=== PATIENT | male | born 1975 | race Caucasian/White ===

== ENCOUNTER 2019-12-11 14:10 | Inpatient (IN) | payer MEDICAID, OTHER, SELFPAY ==
[~2019-12-11] VITALS: Ht 170.2 cm; Wt 84.8 kg
[2019-12-11 15:03] LABS: BASOPHILS % 0.1 % (0.0-2.0); HEMATOCRIT. 37.4 % (42.0-52.0); HEMOGLOBIN. 12.8 g/dL (14.0-18.0); LYMPHOCYTES % 13.9 % (20.0-50.0); MEAN CORPUSCULAR HEMOGLOBIN 29.9 pg (28.0-32.0); MEAN CORPUSCULAR VOLUME 87.4 fL (80.0-94.0); MONOCYTES % 8.6 % (2.0-8.0); NEUTROPHILS % 77.4 % (40.0-76.0); PLATELET 288 x1000/uL (130-400); RED BLOOD CELL COUNT 4.28 mill/uL (4.7-6.1); RED CELL DISTRIBUTION WIDTH 12.9 % (11.6-14.6)
[2019-12-11 15:12] LABS: CHLORIDE 93 mEq/L (98-107)
[2019-12-11 15:17] LABS: ETHANOL BLOOD < 10 mg/dL
[2019-12-11 15:19] LABS: BETA HYDROXYBUTYRATE 0.7 mMol/L (0.0-0.3)
[2019-12-11] MEDS ORDERED: AZITHROMYCIN 500 MG in DEXT 5% WATER 250 ML IV SCH (16:45)
[2019-12-11] MEDS ORDERED: PIPERACILLIN/TAZOBACTAM 3.375GM/50ML PREMIX IV ONE (16:45)
[2019-12-11] MEDS ORDERED: VANCOMYCIN 1 G PREMIX 200 ML IV SCH (16:45)
[2019-12-11] MEDS ORDERED: PIPERACILLIN/TAZ 3.375G PREMIX 50 ML IV NR (16:45)
[2019-12-11] MEDS ORDERED: IOHEXOL-350 100 ML BOTTLE ONE (17:08)
[2019-12-11] MEDS ORDERED: NITROGLYCERIN 0.4MG TABLET SL SL ONE (18:00)
[2019-12-11] MEDS ORDERED: FUROSEMIDE 40MG/4ML VIAL IVP ONE (18:00)
[2019-12-11] MEDS ORDERED: MORPHINE SULFATE 4 MG/ML CPJ (NOT FOR IM USE) IV ONE (18:00)
[2019-12-11 21:01] LABS: CLARITY URINE CLEAR (CLEAR); COLOR URINE YELLOW (YELLOW); KETONES URINE NEGATIVE (NEGATIVE); LEUKOCYTE ESTERASE URINE NEGATIVE (NEGATIVE); NITRITE URINE NEGATIVE (NEGATIVE); OCCULT BLOOD URINE TRACE (NEGATIVE); PH URINE 5.5 (4.5-8.0); PROTEIN URINE 2+ (NEGATIVE); SPECIFIC GRAVITY URINE 1.015 (1.005-1.030); UROBILINOGEN URINE 0.2 E.U./dL (0.2-1.0)
[2019-12-11 21:18] LABS: *AMPHETAMINES SCREEN URINE NEGATIVE (NEGATIVE)
[2019-12-11 21:19] LABS: *BENZODIAZEPINES SCREEN URINE NEGATIVE (NEGATIVE); *COCAINE SCREEN URINE NEGATIVE (NEGATIVE); CANNABINOID URINE SCREEN NEGATIVE (NEGATIVE); METHADONE URINE SCREEN NEGATIVE (NEGATIVE); OPIATES URINE SCREEN PRESUMTIVE POSITIVE (NEGATIVE); PHENCYCLIDINE URINE SCREEN NEGATIVE (NEGATIVE)
[2019-12-11 21:20] LABS: *BARBITURATES SCREEN URINE NEGATIVE (NEGATIVE)
[2019-12-11] MEDS ORDERED: ENOXAPARIN 40MG/0.4ML SYR SUBCUT SCH (23:30)
[2019-12-11] MEDS ORDERED: CLONIDINE 0.1MG TABLET PO PRN (23:30)
[2019-12-11] MEDS ORDERED: CEFTRIAXONE 1 G PREMIX 50 ML IV SCH (23:30)
[2019-12-11] MEDS ORDERED: ONDANSETRON HCL 4MG/2ML INJ IV PRN (23:30)
[2019-12-11] MEDS ORDERED: MAGNESIUM/ALUMINUM HYDROXIDE/SIMETHICONE 30ML UDC PO PRN (23:30)
[2019-12-11] MEDS ORDERED: SODIUM CHLORIDE 0.9% 1,000 ML IV SCH (23:30)
[2019-12-11] MEDS ORDERED: HYDROCODONE/ACETAMINOPHEN 5/325MG TABLET PO PRN (23:30)
[2019-12-12] VITALS (37 sets, daily range): BP systolic 112–148; BP diastolic 65–100
[2019-12-12] MEDS: FUROSEMIDE 40MG/4ML VIAL IV SCH ×2 (00:54→08:33)
[2019-12-12] MEDS ORDERED: DEXTROSE 50% WATER 50ML SYRINGE IV PRN (01:15)
[2019-12-12] MEDS ORDERED: AMLO10TA80 PO (01:56)
[2019-12-12] MEDS ORDERED: GLIP10TA10 PO (01:56)
[2019-12-12] MEDS ORDERED: METO-539 PO (01:56)
[2019-12-12] MEDS ORDERED: PRAV20TA57 PO (01:56)
[2019-12-12] MEDS ORDERED: ATOR40TA70 PO (01:56)
[2019-12-12] MEDS ORDERED: METF-416 PO (01:56)
[2019-12-12 05:56] LABS: CHLORIDE 94 mEq/L (98-107)
[2019-12-12 06:16] LABS: BG BASE EXCESS 2.7 mmol/L (-2.0-2.0); BG CARBOXYHEMOGLOBIN 0.3 % (0.5-1.5); BG DEOXYHEMOGLOBIN 7.7 % (0.0-5.0); BG FRACTION INSPIRED OXYGEN 100; BG METHEMOGLOBIN 0.2 % (0.0-1.5); BG OXYGEN SATURATION 92.3 % (92.0-98.5); BG OXYHEMOGLOBIN 91.8 % (94.0-97.0); BG PCO2 35.7 mmHg (35.0-45.0); BG PO2 63.6 mmHg (75.0-100.0); BG SAMPLE SITE RIGHT BRACHIAL; BG TOTAL HEMOGLOBIN 13.2 g/dL (12.0-18.0); BG VENT MODE MASK - BIPAP
[2019-12-12] MEDS: BLOOD SUGAR DIAGNOSTIC STRIP TEST SCH ×4 (06:17→20:06)
[2019-12-12 06:18] LABS: BASOPHILS % 0.2 % (0.0-2.0); EOSINOPHILS % 0.1 % (0.0-5.0); HEMATOCRIT. 35.9 % (42.0-52.0); HEMOGLOBIN. 12.5 g/dL (14.0-18.0); LYMPHOCYTES % 16.6 % (20.0-50.0); MEAN CORPUSCULAR HEMOGLOBIN 30.3 pg (28.0-32.0); MEAN CORPUSCULAR VOLUME 86.8 fL (80.0-94.0); MEAN PLATELET VOLUME 9.3 fl (7.4-10.4); MONOCYTES % 7.7 % (2.0-8.0); NEUTROPHILS % 75.4 % (40.0-76.0); PLATELET 312 x1000/uL (130-400); RED BLOOD CELL COUNT 4.13 mill/uL (4.7-6.1); RED CELL DISTRIBUTION WIDTH 12.9 % (11.6-14.6)
[2019-12-12] MEDS: INSULIN LISPRO 100 UNITS/ML SUBCUT SCH ×4 (06:18→20:08)
[2019-12-12 06:28] LABS: LDL CHOLESTEROL 81 mg/dL (5-100)
[2019-12-12 06:29] LABS: CREATINE KINASE 97 IU/L (39-308)
[2019-12-12 06:30] LABS: HDL CHOLESTEROL 36 mg/dL (40-59)
[2019-12-12 06:35] LABS: CREATINE KINASE MB FRACTION < 1.0 ng/mL (0.5-3.6)
[2019-12-12] MEDS: IPRATROPIUM/ALBUTEROL 0.5-3(2.5)MG/3ML NEB NEB PRN ×3 (08:17→16:51)
[2019-12-12 08:35] LABS: BG BASE EXCESS 4.9 mmol/L (-2.0-2.0); BG CARBOXYHEMOGLOBIN 0.1 % (0.5-1.5); BG DEOXYHEMOGLOBIN 5.8 % (0.0-5.0); BG HCO3 ACT 29.1 mmol/L (22.0-26.0); BG METHEMOGLOBIN 0.1 % (0.0-1.5); BG OXYGEN SATURATION 94.2 % (92.0-98.5); BG PCO2 41.4 mmHg (35.0-45.0); BG PH 7.465 (7.350-7.450); BG PO2 70.3 mmHg (75.0-100.0); BG SAMPLE SITE RIGHT BRACHIAL; BG TOTAL HEMOGLOBIN 12.8 g/dL (12.0-18.0); BG VENT MODE MASK - BIPAP
[2019-12-12] MEDS: DEXAMETHASONE 4MG TABLET PO SCH (09:58)
[2019-12-12 11:22] LABS: SODIUM URINE RANDOM 86 mEq/L
[2019-12-12] MEDS ORDERED: AZITHROMYCIN 500 MG in DEXT 5% WATER 250 ML IV SCH (17:00)
[2019-12-12] MEDS: AZITHROMYCIN 500 MG in DEXT 5% WATER 250 ML IV SCH (17:27)
[2019-12-12 18:25] LABS: CREATINE KINASE 96 IU/L (39-308)
[2019-12-12 18:26] LABS: CREATINE KINASE MB FRACTION < 1.0 ng/mL (0.5-3.6)
[2019-12-12] MEDS: ENOXAPARIN 30MG/0.3ML SYR SUBCUT SCH (20:05)
[2019-12-12] MEDS: CEFTRIAXONE 1,000 MG in DEXTROSE 5% WATER 50 ML IV SCH (20:05)
[2019-12-12] MEDS: ACETAMINOPHEN 325MG TABLET PO PRN (20:08)
[2019-12-12] MEDS ORDERED: CEFTRIAXONE 1,000 MG in DEXTROSE 5% WATER 50 ML IV SCH (21:00)
[2019-12-12] MEDS: VANCOMYCIN 750 MG PREMIX 150 ML IV SCH (23:42)
[2019-12-13] VITALS (37 sets, daily range): BP systolic 80–164; BP diastolic 50–148
[2019-12-13] MEDS: BLOOD SUGAR DIAGNOSTIC STRIP TEST SCH ×4 (05:39→21:38)
[2019-12-13] MEDS: INSULIN LISPRO 100 UNITS/ML SUBCUT SCH ×4 (05:40→21:44)
[2019-12-13] MEDS: VANCOMYCIN 750 MG PREMIX 150 ML IV SCH ×2 (08:23→16:44)
[2019-12-13] MEDS: ATORVASTATIN CALCIUM 40MG TABLET PO SCH (09:24)
[2019-12-13] MEDS: DEXAMETHASONE 4MG TABLET PO SCH (09:24)
[2019-12-13] MEDS: AMLODIPINE 10MG TABLET PO SCH (09:25)
[2019-12-13] MEDS: GLIPIZIDE 10MG TABLET PO SCH (09:25)
[2019-12-13] MEDS: METOPROLOL TARTRATE 50MG TABLET PO SCH (09:26)
[2019-12-13] MEDS: ENOXAPARIN 30MG/0.3ML SYR SUBCUT SCH ×2 (09:27→21:38)
[2019-12-13 13:12] LABS: HEMATOCRIT. 37.7 % (42.0-52.0); HEMOGLOBIN. 12.9 g/dL (14.0-18.0); MEAN CORPUSCULAR HEMOGLOBIN 29.8 pg (28.0-32.0); MEAN CORPUSCULAR VOLUME 86.9 fL (80.0-94.0); PLATELET 409 x1000/uL (130-400); RED BLOOD CELL COUNT 4.34 mill/uL (4.7-6.1)
[2019-12-13 13:22] LABS: CHLORIDE 96 mEq/L (98-107)
[2019-12-13 13:27] LABS: PHOSPHORUS 3.3 mg/dL (2.5-4.9)
[2019-12-13 13:46] LABS: PLATELET ESTIMATE SLIGHTLY INCREASED
[2019-12-13] MEDS: AZITHROMYCIN 500 MG in DEXT 5% WATER 250 ML IV SCH (17:00)
[2019-12-13] MEDS ORDERED: REMDESIVIR 200 MG in SODIUM CHLORIDE 0.9% 250 ML IV NR (18:00)
[2019-12-13] MEDS: CEFTRIAXONE 1,000 MG in DEXTROSE 5% WATER 50 ML IV SCH (21:36)
[2019-12-14] VITALS (45 sets, daily range): BP systolic 101–152; BP diastolic 35–99
[2019-12-14] MEDS: VANCOMYCIN 750 MG PREMIX 150 ML IV SCH (00:02)
[2019-12-14 05:19] LABS: CHLORIDE 93 mEq/L (98-107)
[2019-12-14 05:24] LABS: TOTAL IRON BINDING CAPACITY 200 ug/dL (250-450)
[2019-12-14 05:28] LABS: VANCOMYCIN TROUGH 19.7 ug/mL (5.0-10.0)
[2019-12-14] MEDS: INSULIN LISPRO 100 UNITS/ML SUBCUT SCH ×4 (06:05→21:26)
[2019-12-14] MEDS: BLOOD SUGAR DIAGNOSTIC STRIP TEST SCH ×4 (06:06→21:30)
[2019-12-14 06:50] LABS: VITAMIN B12 SERUM > 2000.0 pg/mL (211-911)
[2019-12-14] MEDS: GLIPIZIDE 10MG TABLET PO SCH (08:58)
[2019-12-14] MEDS: DEXAMETHASONE 4MG TABLET PO SCH (08:58)
[2019-12-14] MEDS: ATORVASTATIN CALCIUM 40MG TABLET PO SCH (08:58)
[2019-12-14] MEDS: AMLODIPINE 10MG TABLET PO SCH (08:59)
[2019-12-14] MEDS: METOPROLOL TARTRATE 50MG TABLET PO SCH (08:59)
[2019-12-14] MEDS ORDERED: VANCOMYCIN 750 MG PREMIX 150 ML IV SCH (09:00)
[2019-12-14] MEDS: ENOXAPARIN 30MG/0.3ML SYR SUBCUT SCH ×2 (09:00→21:29)
[2019-12-14] MEDS: INSULIN GLARGINE UD 100 UNITS/ML SYR SUBCUT SCH ×2 (12:15→22:36)
[2019-12-14] MEDS: REMDESIVIR 100 MG in SODIUM CHLORIDE 0.9% 250 ML IV SCH (15:01)
[2019-12-14] MEDS: AZITHROMYCIN 500 MG in DEXT 5% WATER 250 ML IV SCH (16:33)
[2019-12-14] MEDS: CEFTRIAXONE 1,000 MG in DEXTROSE 5% WATER 50 ML IV SCH (21:17)
[2019-12-15] VITALS (44 sets, daily range): BP systolic 95–157; BP diastolic 33–91
[2019-12-15] MEDS: ALBUTEROL 6.7GM HFA INHALER ORI SCH ×6 (01:14→21:02)
[2019-12-15 05:02] LABS: HEMATOCRIT. 38.4 % (42.0-52.0); HEMOGLOBIN. 12.8 g/dL (14.0-18.0); MEAN CORPUSCULAR HEMOGLOBIN 29.2 pg (28.0-32.0); MEAN CORPUSCULAR VOLUME 87.3 fL (80.0-94.0); MEAN PLATELET VOLUME 8.7 fl (7.4-10.4); PLATELET 481 x1000/uL (130-400)
[2019-12-15 05:14] LABS: CHLORIDE 98 mEq/L (98-107)
[2019-12-15] MEDS: BLOOD SUGAR DIAGNOSTIC STRIP TEST SCH ×4 (05:41→21:25)
[2019-12-15] MEDS: INSULIN LISPRO 100 UNITS/ML SUBCUT SCH ×4 (05:45→21:25)
[2019-12-15 07:27] LABS: BG BASE EXCESS 2.9 mmol/L (-2.0-2.0); BG CARBOXYHEMOGLOBIN 0.3 % (0.5-1.5); BG DEOXYHEMOGLOBIN 5.8 % (0.0-5.0); BG METHEMOGLOBIN 0.1 % (0.0-1.5); BG OXYGEN SATURATION 94.2 % (92.0-98.5); BG OXYHEMOGLOBIN 93.8 % (94.0-97.0); BG PCO2 39.8 mmHg (35.0-45.0); BG PO2 70.9 mmHg (75.0-100.0); BG SAMPLE SITE RIGHT RADIAL; BG TOTAL HEMOGLOBIN 13.1 g/dL (12.0-18.0); BG VENT MODE MASK - BIPAP
[2019-12-15 08:57] LABS: PLATELET ESTIMATE INCREASED
[2019-12-15] MEDS: AMLODIPINE 10MG TABLET PO SCH (09:15)
[2019-12-15] MEDS: ATORVASTATIN CALCIUM 40MG TABLET PO SCH (09:15)
[2019-12-15] MEDS: DEXAMETHASONE 4MG TABLET PO SCH (09:15)
[2019-12-15] MEDS: GLIPIZIDE 10MG TABLET PO SCH (09:15)
[2019-12-15] MEDS: METOPROLOL TARTRATE 50MG TABLET PO SCH (09:16)
[2019-12-15] MEDS: ENOXAPARIN 30MG/0.3ML SYR SUBCUT SCH ×2 (09:19→21:23)
[2019-12-15] MEDS: INSULIN GLARGINE UD 100 UNITS/ML SYR SUBCUT SCH ×2 (09:23→21:24)
[2019-12-15] MEDS: REMDESIVIR 100 MG in SODIUM CHLORIDE 0.9% 250 ML IV SCH (16:27)
[2019-12-15] MEDS: AZITHROMYCIN 500 MG in DEXT 5% WATER 250 ML IV SCH (17:00)
[2019-12-15] MEDS: CEFTRIAXONE 1,000 MG in DEXTROSE 5% WATER 50 ML IV SCH (21:43)
[2019-12-16] VITALS (42 sets, daily range): BP systolic 110–147; BP diastolic 42–94
[2019-12-16] MEDS: ALBUTEROL 6.7GM HFA INHALER ORI SCH ×4 (01:55→20:57)
[2019-12-16 05:53] LABS: CHLORIDE 99 mEq/L (98-107)
[2019-12-16 05:55] LABS: HEMATOCRIT. 37.1 % (42.0-52.0); HEMOGLOBIN. 12.5 g/dL (14.0-18.0); MEAN CORPUSCULAR HEMOGLOBIN 29.3 pg (28.0-32.0); MEAN PLATELET VOLUME 8.7 fl (7.4-10.4); PLATELET 506 x1000/uL (130-400); RED BLOOD CELL COUNT 4.27 mill/uL (4.7-6.1); RED CELL DISTRIBUTION WIDTH 12.9 % (11.6-14.6)
[2019-12-16] MEDS: BLOOD SUGAR DIAGNOSTIC STRIP TEST SCH ×4 (06:14→21:20)
[2019-12-16] MEDS: INSULIN LISPRO 100 UNITS/ML SUBCUT SCH ×4 (06:14→21:22)
[2019-12-16] MEDS: AMLODIPINE 10MG TABLET PO SCH (08:32)
[2019-12-16] MEDS: ATORVASTATIN CALCIUM 40MG TABLET PO SCH (08:32)
[2019-12-16] MEDS: METOPROLOL TARTRATE 50MG TABLET PO SCH (08:33)
[2019-12-16] MEDS: DOCUSATE SODIUM 100MG CAPSULE PO PRN ×2 (08:33→21:50)
[2019-12-16] MEDS: DEXAMETHASONE 4MG TABLET PO SCH (08:33)
[2019-12-16] MEDS: GLIPIZIDE 10MG TABLET PO SCH (08:33)
[2019-12-16] MEDS: ENOXAPARIN 30MG/0.3ML SYR SUBCUT SCH ×2 (08:34→21:19)
[2019-12-16] MEDS ORDERED: GUAIFENESIN-DM 200MG-20MG/10ML UDC PO PRN (08:45)
[2019-12-16 08:53] LABS: PLATELET ESTIMATE INCREASED
[2019-12-16] MEDS ORDERED: DEXAMETHASONE 4MG TABLET PO SCH (09:00)
[2019-12-16] MEDS: INSULIN GLARGINE UD 100 UNITS/ML SYR SUBCUT SCH ×2 (10:34→21:20)
[2019-12-16] MEDS: REMDESIVIR 100 MG in SODIUM CHLORIDE 0.9% 250 ML IV SCH (16:46)
[2019-12-16] MEDS: AZITHROMYCIN 500 MG in DEXT 5% WATER 250 ML IV SCH (16:59)
[2019-12-16] MEDS: CEFTRIAXONE 1,000 MG in DEXTROSE 5% WATER 50 ML IV SCH (21:18)
[2019-12-17] VITALS (45 sets, daily range): BP systolic 117–152; BP diastolic 55–93
[2019-12-17] MEDS: ACETAMINOPHEN 325MG TABLET PO PRN (00:17)
[2019-12-17] MEDS: ALBUTEROL 6.7GM HFA INHALER ORI SCH ×3 (01:25→16:08)
[2019-12-17] MEDS: BLOOD SUGAR DIAGNOSTIC STRIP TEST SCH ×4 (06:16→21:00)
[2019-12-17] MEDS: INSULIN LISPRO 100 UNITS/ML SUBCUT SCH ×4 (06:18→23:03)
[2019-12-17] MEDS: GLIPIZIDE 10MG TABLET PO SCH (08:16)
[2019-12-17] MEDS: ATORVASTATIN CALCIUM 40MG TABLET PO SCH (08:17)
[2019-12-17] MEDS: ENOXAPARIN 30MG/0.3ML SYR SUBCUT SCH ×2 (08:17→21:37)
[2019-12-17] MEDS: AMLODIPINE 10MG TABLET PO SCH (08:17)
[2019-12-17] MEDS: DEXAMETHASONE 4MG TABLET PO SCH (08:17)
[2019-12-17] MEDS: METOPROLOL TARTRATE 50MG TABLET PO SCH (08:17)
[2019-12-17 10:21] LABS: CHLORIDE 100 mEq/L (98-107)
[2019-12-17 10:27] LABS: PHOSPHORUS 2.7 mg/dL (2.5-4.9)
[2019-12-17] MEDS: INSULIN GLARGINE UD 100 UNITS/ML SYR SUBCUT SCH ×2 (10:29→21:38)
[2019-12-17] MEDS ORDERED: LACTULOSE 20G/30ML UDC PO NR (11:30)
[2019-12-17] MEDS: REMDESIVIR 100 MG in SODIUM CHLORIDE 0.9% 250 ML IV SCH (16:56)
[2019-12-18] VITALS (34 sets, daily range): BP systolic 115–154; BP diastolic 28–97
[2019-12-18] MEDS: ALBUTEROL 6.7GM HFA INHALER ORI SCH ×3 (01:54→16:50)
[2019-12-18 05:42] LABS: CHLORIDE 102 mEq/L (98-107)
[2019-12-18 05:45] LABS: HEMATOCRIT. 38.3 % (42.0-52.0); HEMOGLOBIN. 12.9 g/dL (14.0-18.0); MEAN CORPUSCULAR HEMOGLOBIN 29.3 pg (28.0-32.0); MEAN CORPUSCULAR VOLUME 87.2 fL (80.0-94.0); MEAN PLATELET VOLUME 8.8 fl (7.4-10.4); PLATELET 518 x1000/uL (130-400); RED BLOOD CELL COUNT 4.39 mill/uL (4.7-6.1); RED CELL DISTRIBUTION WIDTH 13.1 % (11.6-14.6)
[2019-12-18] MEDS: INSULIN LISPRO 100 UNITS/ML SUBCUT SCH ×4 (06:07→21:00)
[2019-12-18] MEDS: BLOOD SUGAR DIAGNOSTIC STRIP TEST SCH ×4 (06:07→21:00)
[2019-12-18 07:30] LABS: PLATELET ESTIMATE INCREASED
[2019-12-18] MEDS: ATORVASTATIN CALCIUM 40MG TABLET PO SCH (08:18)
[2019-12-18] MEDS: DEXAMETHASONE 4MG TABLET PO SCH (08:18)
[2019-12-18] MEDS: METOPROLOL TARTRATE 50MG TABLET PO SCH (08:18)
[2019-12-18] MEDS: GLIPIZIDE 10MG TABLET PO SCH (08:18)
[2019-12-18] MEDS: ENOXAPARIN 30MG/0.3ML SYR SUBCUT SCH ×2 (08:19→23:03)
[2019-12-18] MEDS: AMLODIPINE 10MG TABLET PO SCH (08:19)
[2019-12-18] MEDS: INSULIN GLARGINE UD 100 UNITS/ML SYR SUBCUT SCH ×2 (09:02→22:00)
[2019-12-18 23:08] LABS: BG BASE EXCESS -1.9 mmol/L (-2.0-2.0); BG CARBOXYHEMOGLOBIN 0.5 % (0.5-1.5); BG DEOXYHEMOGLOBIN 11.7 % (0.0-5.0); BG FRACTION INSPIRED OXYGEN 100; BG HCO3 ACT 21.7 mmol/L (22.0-26.0); BG METHEMOGLOBIN 0.3 % (0.0-1.5); BG OXYGEN SATURATION 88.2 % (92.0-98.5); BG OXYHEMOGLOBIN 87.5 % (94.0-97.0); BG PH 7.423 (7.350-7.450); BG PO2 53.2 mmHg (75.0-100.0); BG SAMPLE SITE RIGHT RADIAL; BG TOTAL HEMOGLOBIN 14.7 g/dL (12.0-18.0); BG TOTAL RESPIRATORY RATE 30 b/min; BG VENT MODE MASK - BIPAP
[2019-12-19] VITALS (49 sets, daily range): BP systolic 43–221; BP diastolic 15–119
[2019-12-19] MEDS ORDERED: MAGNESIUM SULFATE 4G IN WATER 100ML PREMIX IV ONE (01:45)
[2019-12-19] MEDS ORDERED: CALCIUM CHLORIDE 1GM/10ML SYR IV ONE (01:45)
[2019-12-19] MEDS ORDERED: EPINEPHRINE 0.1MG/ML (1:10,000) 10ML SYR ONE (01:45)
[2019-12-19] MEDS ORDERED: SODIUM BICARBONATE 8.4% 1 MEQ/ML 50ML SYR IV ONE (01:45)
[2019-12-19] MEDS: PROPOFOL 10MG/ML 100ML 100 ML IV PRN ×3 (02:37→07:50)
[2019-12-19] MEDS ORDERED: FENTANYL CITRATE/PF 1,000 MCG in SODIUM CHLORIDE 0.9% 80 ML IV PRN (03:00)
[2019-12-19] MEDS ORDERED: MIDAZOLAM HCL 100 MG in DEXT 5% WATER 80 ML IV PRN (03:00)
[2019-12-19] MEDS ORDERED: PHENYLEPHRINE 50 MG in DEXT 5% WATER 245 ML IV PRN (03:00)
[2019-12-19 04:00] LABS: BG CARBOXYHEMOGLOBIN 0.6 % (0.5-1.5); BG FRACTION INSPIRED OXYGEN 100; BG HCO3 ACT 20.5 mmol/L (22.0-26.0); BG METHEMOGLOBIN 0.3 % (0.0-1.5); BG OXYGEN SATURATION 83.9 % (92.0-98.5); BG OXYHEMOGLOBIN 83.1 % (94.0-97.0); BG PCO2 48.6 mmHg (35.0-45.0); BG PH 7.242 (7.350-7.450); BG PO2 55.7 mmHg (75.0-100.0); BG SAMPLE SITE RIGHT RADIAL; BG TOTAL HEMOGLOBIN 14.3 g/dL (12.0-18.0); BG TOTAL RESPIRATORY RATE 33 b/min; BG VENT MODE VENT - AC
[2019-12-19] MEDS: ACETAMINOPHEN 325MG TABLET PO PRN (05:10)
[2019-12-19 05:40] LABS: HEMATOCRIT. 40.8 % (42.0-52.0); HEMOGLOBIN. 13.3 g/dL (14.0-18.0); MEAN CORPUSCULAR HEMOGLOBIN 29.2 pg (28.0-32.0); MEAN PLATELET VOLUME 8.6 fl (7.4-10.4); PLATELET 344 x1000/uL (130-400); RED BLOOD CELL COUNT 4.53 mill/uL (4.7-6.1); RED CELL DISTRIBUTION WIDTH 13.2 % (11.6-14.6)
[2019-12-19 05:42] LABS: CHLORIDE 100 mEq/L (98-107)
[2019-12-19] MEDS ORDERED: NOREPINEPHRINE 8 MG in DEXT 5% WATER 242 ML IV SCH (06:00)
[2019-12-19] MEDS: BLOOD SUGAR DIAGNOSTIC STRIP TEST SCH (06:30)
[2019-12-19] MEDS: INSULIN LISPRO 100 UNITS/ML SUBCUT SCH (06:30)
[2019-12-19 07:12] LABS: PLATELET ESTIMATE NORMAL
[2019-12-19] MEDS: ALBUTEROL 6.7GM HFA INHALER ORI SCH (08:10)
[2019-12-19] MEDS: METOPROLOL TARTRATE 50MG TABLET PO SCH (09:00)
[2019-12-19] MEDS: AMLODIPINE 10MG TABLET PO SCH (09:00)
[2019-12-19] MEDS ORDERED: PANTOPRAZOLE SODIUM 40 MG/VIAL IV SCH (09:30)
[2019-12-19] MEDS ORDERED: EPINEPHRINE 10 MG in SODIUM CHLORIDE 0.9% 240 ML IV PRN (09:45)
[2019-12-19 09:52] LABS: BG BASE EXCESS -6.1 mmol/L (-2.0-2.0); BG FRACTION INSPIRED OXYGEN 100; BG PCO2 53.9 mmHg (35.0-45.0); BG PH 7.229 (7.350-7.450); BG SAMPLE SITE LEFT BRACHIAL; BG TOTAL RESPIRATORY RATE 22 b/min; BG VENT MODE VENT- PRVC
[2019-12-19] MEDS ORDERED: AMIODARONE HCL 50MG/ML 9ML VIAL IV STA (09:55)
[2019-12-19] MEDS ORDERED: SODIUM POLYSTYRENE SULFONATE 15 G/60 ML BOT PO SCH (10:00)
[2019-12-19] MEDS ORDERED: CEFEPIME 1,000 MG in DEXTROSE 5% WATER 50 ML IV SCH (10:00)
[2019-12-19] MEDS ORDERED: AMIODARONE HCL 150 MG in DEXT 5% WATER 100 ML IV SCH (10:00)
[2019-12-19] MEDS ORDERED: AMIODARONE HCL 900 MG in DEXT 5% WATER 500 ML IV SCH (10:00)
[2019-12-19 10:40] LABS: BG BASE EXCESS -10.4 mmol/L (-2.0-2.0); BG CARBOXYHEMOGLOBIN 0.8 % (0.5-1.5); BG FRACTION INSPIRED OXYGEN 1000; BG HCO3 ACT 20.6 mmol/L (22.0-26.0); BG METHEMOGLOBIN 0.3 % (0.0-1.5); BG OXYGEN SATURATION 69.7 % (92.0-98.5); BG OXYHEMOGLOBIN 68.9 % (94.0-97.0); BG PCO2 69.6 mmHg (35.0-45.0); BG PO2 47.5 mmHg (75.0-100.0); BG SAMPLE SITE ALINE
[2019-12-19 12:14] LABS: HEMATOCRIT. 45.9 % (42.0-52.0); HEMOGLOBIN. 14.1 g/dL (14.0-18.0); MEAN CORPUSCULAR HEMOGLOBIN 28.8 pg (28.0-32.0); MEAN CORPUSCULAR VOLUME 93.5 fL (80.0-94.0); MEAN PLATELET VOLUME 8.2 fl (7.4-10.4); PLATELET 325 x1000/uL (130-400); RED CELL DISTRIBUTION WIDTH 13.8 % (11.6-14.6)
[2019-12-19 12:26] LABS: CHLORIDE 102 mEq/L (98-107)
[2019-12-19 12:55] LABS: PLATELET ESTIMATE NORMAL
[2019-12-19] MEDS ORDERED: ENOXAPARIN 40MG/0.4ML SYR SUBCUT SCH (16:00)
== END 2019-12-19 13:03 | disposition expired | DRG 720 ==
LOC: ER 14:10 → MICUSO 19:06 → EDBEDREQSVC 19:11 → EDBEDREQTM 19:11 → EDBEDREQ 19:11 → ENRESERV 21:02 → CANRESERV 21:02 → MICUSO 12-12 00:10
PROVIDERS: ADMIT Internal Medicine; ATTEND Internal Medicine
PROC: 5A09557 Assistance with Respiratory Ventilation, Greater than 96 Consecutive Hours, Continuous Positive Airway Pressure (ICD-10-PCS; 2019-12-11)
PROC: 30233K1 Transfusion of Nonautologous Frozen Plasma into Peripheral Vein, Percutaneous Approach (ICD-10-PCS; 2019-12-13)
PROC: XW033E5 Introduction of Remdesivir Anti-infective into Peripheral Vein, Percutaneous Approach, New Technology Group 5 (ICD-10-PCS; 2019-12-13)
PROC: 5A12012 Performance of Cardiac Output, Single, Manual (ICD-10-PCS; principal; 2019-12-19)
PROC: 0BH17EZ Insertion of Endotracheal Airway into Trachea, Via Natural or Artificial Opening (ICD-10-PCS; 2019-12-19)
PROC: 5A1935Z Respiratory Ventilation, Less than 24 Consecutive Hours (ICD-10-PCS; 2019-12-19)
DX: A41.89 Other specified sepsis (principal); U07.1 COVID-19; J12.89 Other viral pneumonia; E78.00 Pure hypercholesterolemia, unspecified; I27.20 Pulmonary hypertension, unspecified; J96.01 Acute respiratory failure with hypoxia; I10 Essential (primary) hypertension; E78.5 Hyperlipidemia, unspecified; E44.1 Mild protein-calorie malnutrition; R65.20 Severe sepsis without septic shock; E66.01 Morbid (severe) obesity due to excess calories; E87.2 Acidosis; Z66 Do not resuscitate; Z20.828 Contact with and (suspected) exposure to other viral communicable diseases; Z88.0 Allergy status to penicillin; Z68.29 Body mass index [BMI] 29.0-29.9, adult; E11.65 Type 2 diabetes mellitus with hyperglycemia; I47.2 Ventricular tachycardia
CPT/HCPCS: 31500; 36415; 36600; 71045; 71275; 80048; 80053; 80061; 80076; 80202; 80305; 80320; 81003; 82010; 82375; 82550; 82553; 82607; 82728; 82746; 82805; 82962; 83036; 83540; 83550; 83605; 83615; 83735; 83880; 83930; 83935; 84100; 84145; 84300; 84443; 84450; 84460; 84484; 85025; 85379; 86140; 86850; 86900; 86927; 87070; 87635; 92950; 93005; 93970; 94002; 94003; 94640; 94660; 99291; C1725; J0282; J0456; J0692; J0696; J1650; J1815; J1940; J2250; J2270; J2405; J2543; J2704; J3010; J3370; J3475; J3490; J7040; J7050; J7060; J8540; P9017; Q9957; Q9967; A4315; G0480